=== PATIENT | male | born 1940 | race Caucasian/White ===

== ENCOUNTER → 2018-06-26 | Outpatient (CLI) | payer OTHER ==
[~2018-06-26] VITALS: Ht 170.2 cm; Wt 66.7 kg
[~2018-06-26] MED LIST: ASPIR 8181 MG PO; CENTRUM SILVER1 EAC2 PO; CHLORTHALIDONE25 MG PO; IBUPROFEN 600600 M1 PO; LOSARTAN POTAS100 MG PO; LUTEIN20 M1 PO; PRAVACHOL20 MG PO; PREDNISONE 1 MG1 M1 PO; VITAMIN D1000 UNI1 PO
--- NOTE | ~2018-06-26 | P ---
[facility] [place] [address] PROCEDURE REPORT Name: SAWYER BAKER Room #: REG [facility]#: [id number] Admission: 06/26/18 Attend Phys: Oracio Mosher Discharge: Date of : 36 Report #: [id number] THIS REPORT FOR: //name// CC: Nilesh Araya DATE OF SERVICE: 06/26/2018 PROCEDURE PERFORMED: Colonoscopy. HISTORY OF PRESENT ILLNESS: The patient is an 78-year-old male who is here for routine followup colonoscopy screening. Denies any symptoms. He does have a history of prostate cancer within the last few years and underwent radiation therapy. He denies any blood in his stools. No family history of colon cancer. Last colonoscopy was negative other than diverticulosis. DESCRIPTION OF PROCEDURE: The risks and benefits of the procedure were explained to the patient, those risks including but not limited to bleeding, perforation and the risk of sedation. He understood these risks and gave informed consent. Sedation was given using propofol per Anesthesia. Next, a digital rectal exam was initially performed, which was normal. Next, using a standard Olympus colonoscope, the scope was placed in the patient's anus and advanced under direct vision to the cecum. The overall prep was good. The cecum and ileocecal valve were normal in appearance. Ascending, transverse and descending colon were normal. Multiple diverticula were noted in the sigmoid colon, no evidence of inflammation, otherwise normal. In the rectum, mild radiation proctitis was noted. No evidence of bleeding, no other abnormalities were noted. The scope was then withdrawn and the procedure terminated. The patient tolerated the procedure well. IMPRESSION: 1. Sigmoid diverticulosis. 2. Mild radiation changes in the rectum. No bleeding. 3. Otherwise, normal colonoscopy. RECOMMENDATIONS: 1. Observe at this point. 2. The patient does not need a repeat colonoscopy due to his age. 3. I explained to the patient in the future if he ever has bleeding, we could always perform a flexible sigmoidoscopy and cauterize radiation changes if needed. [address] [address] PROCEDURE REPORT Name: SAWYER BAKER Room #: REG [facility]#: [id number] Admission: 06/26/18 Attend Phys: Oracio Mosher Discharge: Date of : 36 Report #: [id number] Thank you for allowing me to participate in his care. By: [id number] Oracio Araya MD /nt
== END | disposition home or self-care (01) ==
LOC: GI 06:40
DX: Z12.11 Encounter for screening for malignant neoplasm of colon (principal); K57.30 Diverticulosis of large intestine without perforation or abscess without bleeding; K62.89 Other specified diseases of anus and rectum; I10 Essential (primary) hypertension; E78.5 Hyperlipidemia, unspecified; Z98.42 Cataract extraction status, left eye; Z85.46 Personal history of malignant neoplasm of prostate; Z96.651 Presence of right artificial knee joint; Z98.890 Other specified postprocedural states; Z79.899 Other long term (current) drug therapy; Z88.8 Allergy status to other drugs, medicaments and biological substances; Z79.82 Long term (current) use of aspirin
CPT/HCPCS: 62110; 62900